=== PATIENT | female | born 2000 | race Caucasian/White ===

== ENCOUNTER 2022-11-22 16:57 | Emergency (ER) | payer MEDICAID, OTHER ==
[~2022-11-22] VITALS: Ht 167.6 cm; Wt 77.6 kg
[2022-11-22 20:11] VITALS: BP 131/77
[2022-11-22] MEDS ORDERED: POLY335015 PO (20:53)
[2022-11-22] MEDS ORDERED: TUCKS TOP (20:53)
== END 2022-11-22 20:58 | disposition home or self-care (01) ==
LOC: ER 16:57
DX: K64.8 Other hemorrhoids (principal); K59.00 Constipation, unspecified